=== PATIENT | male | born 1950 | race Caucasian/White ===

== ENCOUNTER → 2016-11-05 | Outpatient (CLI) | payer BC ==
[~2016-11-05] MED LIST: ASPI325T45 PO; ATOR-26 PO; CHOL1000 PO; CYAN100020 PO; DILT180C70 PO; EZET10TA63 PO; FERR325T74 PO; FINA5TAB4 PO; FLM4 PO; LEVO75TA PO; MELO15TA4 PO; METF-382 PO; MULT-877 PO; REPA1TAB5 PO
[2016-11-05 09:36] LABS: BASO % 0.5 %; BASO ABS # 0.04 K/uL (0-0.2); EOS % 2.5 %; HEMATOCRIT 31.7 % (42-52); IG% 0.4 %; LYMPH ABS # 1.28 K/uL (1.2-3.4); MEAN CELL VOLUME 107.8 fL (80-100); MEAN CORPUSCULAR HEMOGLOBIN 36.4 pg (25-34); MEAN CORPUSCULAR HGB CONC 33.8 g/dl (32-36); MEAN PLATELET VOLUME 9.3 fL (7.4-10.4); MONO % 15.2 %; NEUT % 65.4 %; PLATELET COUNT 228 K/uL (130-400); RED BLOOD COUNT 2.94 M/uL (4.7-6.1); WHITE BLOOD COUNT 7.98 K/uL (4.8-10.8)
[2016-11-05 09:46] LABS: CHOLESTEROL/HDL RATIO 2.6; ESTIMATED AVERAGE GLUCOSE 131 mg/dl; HA1C FLAG Normal (Normal)
[2016-11-05 09:47] LABS: ALT/SGPT 26 U/L (12-78); BLOOD UREA NITROGEN 28 mg/dl (7-18); BUN/CREATININE RATIO 23.1 (10-20); CALCIUM 8.9 mg/dl (8.5-10.1); CARBON DIOXIDE 24 mmol/L (21-32); CHLORIDE 105 mmol/L (98-107); GLUCOSE 87 mg/dl (70-99); POTASSIUM 4.8 mmol/L (3.5-5.1); SODIUM 137 mmol/L (136-145)
[2016-11-05 09:50] LABS: ALKALINE PHOSPHATASE 91 U/L (45-117); AST/SGOT 29 U/L (15-37); FERRITIN 82.6 ng/ml (8.0-388.0)
[2016-11-05 09:59] LABS: COMPLETE YES
== END | disposition home or self-care (01) ==
LOC: C.LAB1850 08:20
PROVIDERS: ATTEND Nurse Practitioner
DX: E11.9 Type 2 diabetes mellitus without complications (principal); E78.5 Hyperlipidemia, unspecified; D53.1 Other megaloblastic anemias, not elsewhere classified

== ENCOUNTER → 2017-01-29 | Outpatient (CLI) | payer BC | END | disposition home or self-care (01) | LOC: C.LABSPEC 15:09 | PROVIDERS: ATTEND Podiatrist | DX: L03.032 Cellulitis of left toe (principal) ==

== ENCOUNTER → 2017-04-29 | Outpatient (CLI) | payer BC ==
[2017-04-29 15:23] LABS: HEMATOCRIT 31.5 % (42-52); MEAN CELL VOLUME 109.4 fL (80-100); MEAN CORPUSCULAR HEMOGLOBIN 36.8 pg (25-34); MEAN CORPUSCULAR HGB CONC 33.7 g/dl (32-36); MEAN PLATELET VOLUME 9.5 fL (7.4-10.4); PLATELET COUNT 215 K/uL (130-400); RED BLOOD COUNT 2.88 M/uL (4.7-6.1); WHITE BLOOD COUNT 7.57 K/uL (4.8-10.8)
[2017-04-29 15:51] LABS: ALT/SGPT 24 U/L (12-78); BLOOD UREA NITROGEN 31 mg/dl (7-18); CALCIUM 8.6 mg/dl (8.5-10.1); CARBON DIOXIDE 25 mmol/L (21-32); CHLORIDE 109 mmol/L (98-107); GLUCOSE 92 mg/dl (70-99); POTASSIUM 4.9 mmol/L (3.5-5.1); SODIUM 141 mmol/L (136-145)
[2017-04-29 15:53] LABS: BASO % 0.5 %; BASO ABS # 0.04 K/uL (0-0.2); COMPLETE YES; ECHINOCYTES 1+; EOS % 1.2 %; IG% 0.5 %; LYMPH % 12.8 %; LYMPH ABS # 0.97 K/uL (1.2-3.4); MONO % 13.9 %; NEUT % 71.1 %; SCHISTOCYTES 1+; TEAR DROP CELLS 1+
[2017-04-29 16:00] LABS: ALKALINE PHOSPHATASE 89 U/L (45-117); AST/SGOT 29 U/L (15-37); THYROID STIMULATING HORMONE 0.777 uIu/ml (0.300-4.500); TOTAL IRON BINDING CAPACITY 268 mcg/dl (250-450)
--- NOTE | 2017-05-07 13:11 | CODING QUERY MEDICAL NECESSITY ---
SUPPORTING DIAGNOSIS NEEDED A supporting diagnosis is required for the test/procedure performed on this patient in order for us to be reimbursed by the patient's insurance. Please provide a supporting diagnosis for the following test/procedure listed below next to the test name along with your signature. *If there is no additional diagnosis for this patient that would support the following test/procedure please document that below next to the test/procedure. Test(s)/Procedure(s) that require a supporting diagnosis: * VITAMIN D, 25-HYDROXY DIAGNOSIS: Provider Signature: Date: Thank you Heather Acuña [employer] Once completed, please kindly fax back to [phone] For questions please call [phone]
== END | disposition home or self-care (01) ==
LOC: C.LAB1850 14:21
PROVIDERS: ATTEND Physician Assistant
DX: D51.8 Other vitamin B12 deficiency anemias (principal); R53.81 Other malaise; E03.9 Hypothyroidism, unspecified

== ENCOUNTER → 2017-05-02 | Outpatient (CLI) | payer BC ==
--- NOTE | 2017-05-02 12:11 | DIAGNOSTIC IMAGING REPORT ---
ULTRASOUND ABDOMEN COMPLETE CLINICAL HISTORY: Macrocytic anemia. COMPARISON STUDY: No priors. TECHNIQUE: Real-time, grayscale, and color flow sonography of the abdomen was performed. Images are reviewed in the transverse and longitudinal planes. FINDINGS: Liver: The liver is normal in size and echotexture measuring 15.5 cm in length. There is no intrahepatic biliary ductal dilatation. The main portal vein is patent. Gallbladder: The gallbladder is normal in appearance. No gallstones are identified. There is no gallbladder wall thickening or pericholecystic fluid. A sonographic Weiss's sign is reportedly absent. The common bile duct measures up to 0.3 cm in diameter. Pancreas: Visualized portions of the pancreatic head and body are normal in appearance. Spleen: The spleen is normal in size and echotexture, measuring 8.8 cm in length. Kidneys: The kidneys demonstrate cortical atrophy. There is no hydronephrosis. The right kidney measures 11.9 cm in length and the left kidney measures 10.7 cm in length. Subcentimeter cysts are noted in the left kidney. No shadowing calculi are identified. Abdominal vasculature: Visualized portions of the abdominal aorta are normal in appearance. Ascites: None. IMPRESSION: 1. No acute sonographic abnormality is identified. 2. The liver and spleen are normal in size. Electronically signed by: Rishabh Ruiz M.D. 05/02/2017 12:10 PM Dictated Date/Time: 05/02/2017 12:08 PM
== END | disposition home or self-care (01) ==
LOC: C.ULTR 10:45
PROVIDERS: ATTEND Nurse Practitioner Family
DX: D53.1 Other megaloblastic anemias, not elsewhere classified (principal)

== ENCOUNTER → 2017-05-26 | Outpatient (CLI) | payer BC ==
[2017-05-26 10:57] LABS: CHOLESTEROL/HDL RATIO 3.6; PROSTATE SPECIFIC ANTIGEN 0.573 ng/ml (0.000-4.000)
[2017-05-26 11:29] LABS: ESTIMATED AVERAGE GLUCOSE 131 mg/dl; HA1C FLAG Normal (Normal)
== END | disposition home or self-care (01) ==
LOC: C.LAB1850 08:55
PROVIDERS: ATTEND Internal Medicine
DX: E11.9 Type 2 diabetes mellitus without complications (principal); E78.5 Hyperlipidemia, unspecified; Z12.5 Encounter for screening for malignant neoplasm of prostate